=== PATIENT | female | born 1990 | race Caucasian/White ===

== ENCOUNTER 2023-09-03 02:38 | Emergency (ER) | payer BC ==
[2023-09-03] MEDS ORDERED: Naloxone 0.4 MG/ML SDV IVPUSH PRN (03:20)
[2023-09-03] MEDS: HYDROmorphone 0.5 MG/0.5 ML Syringe IVPUSH ONE (03:28)
== END 2023-09-03 11:35 | disposition home or self-care (01) ==
LOC: JP.ED 02:38
DX: S82.142A Displaced bicondylar fracture of left tibia, initial encounter for closed fracture (principal); V86.95XA Unspecified occupant of 3- or 4- wheeled all-terrain vehicle (ATV) injured in nontraffic accident, initial encounter
CPT/HCPCS: 73562; 73590; 73600; 73630; 73700; 76377; 96374; 99285; J1170